=== PATIENT | female | born 1940 | race Caucasian/White ===

== ENCOUNTER → 2021-12-11 | Outpatient (CLI) | payer MEDICARE ==
--- NOTE | 2021-12-11 11:34 | CT ---
EXAMINATION TYPE: CT chest wo con DATE OF EXAM: 12/11/2021 COMPARISON: None available HISTORY: Pleural effusion CT DLP: 658.5 mGycm. Automated Exposure Control for Dose Reduction was Utilized. TECHNIQUE: CT scan of the thorax is performed without IV contrast. FINDINGS: Moderate left pleural effusion. Adjacent left basal subsegmental pulmonary atelectasis. Slightly thic kened atelectasis is seen in the lingula. Minimal atelectasis seen in the right lung base. 2 mm faint nodule seen at the posterolateral aspect of the right upper lobe (image #[id number], series 4). Subtle perip heral reticulations are seen in the left upper lobe and left lower lobe. No other definite lung nodul e or lesion identified. The pulmonary trunk measures 3.3 cm. No obvious pleural nodularity by this nonenhanced CT scan. No right-sided pleural effusion or definit e pericardial effusion. Cardiomegaly, please correlate with echocardiographic results. Scattered javier rial atherosclerotic calcifications with coronary arterial calcifications. No pathologically enlarged lymph nodes in the chest. Previous cholecystectomy. T10 and L1 vertebral body hemangiomas. Degenerat gilbert changes of the mid thoracic spine. Osteopenia. No aggressive bone lesion. IMPRESSION: Moderate left-sided pleural effusion without obvious pleural nodularity by this nonenhanced CT scan. Adjacent segmental pulmonary atelectasis. No gross lung mass by this unenhanced CT scan. 2 mm nodule in the right upper lobe requiring no further follow-up if low risk patient. If high risk patient, opt ional follow-up CT scan in 12 months can be considered.
== END | disposition home or self-care (01) ==
LOC: RADCTMAIN 07:02
PROVIDERS: ATTEND Family Medicine
DX: J90 Pleural effusion, not elsewhere classified (principal); J98.11 Atelectasis; R91.1 Solitary pulmonary nodule
CPT/HCPCS: 71250